=== PATIENT | female | born 1995 | race African-American/Black ===

== ENCOUNTER 2017-06-03 23:51 | Emergency (ER) | payer MEDICAID ==
[~2017-06-03 23:51] MED LIST: DICL50 PO
[2017-06-03 23:52] VITALS: BP 160/90; PULSE 68; RESP 16; TEMP 99.3; O2SAT 100
--- NOTE | 2017-06-04 00:05 | PD ---
HPI Chief Complaint: Chest Pain Time Seen by Provider: 00:02 Travel History International Travel<30 days: No Contact w/Intl Traveler<30days: No Traveled to known affect area: No History of Present Illness HPI 22-year-old female here for evaluation of chest pain. The patient reports that for the last 2 days she has been having intermittent left-sided chest pain which she describes as an ache, moderate, radiates down her left arm. There are no modifying factors. No dyspnea. No fevers, chills, cough, recent illness. No paresthesias or motor deficits. She reports having similar pains several years ago. No history of DVT or PE. No known history of cardiac disease. No history of cardiac disease in her mother or father. She has an explanon implantable control in her right upper extremity. She quit smoking in August of this year. No IVDU. PFSH Past Medical History Medical History: Denies Significant Hx Immunizations Current: Yes ?: Not LMP: 06/02/17 Past Surgical History Surgical History: No Previous Surgery Social History Alcohol Use: Yes (OCCASIONALLY ) Tobacco Use: Yes Substance Use: No Allergies-Medications (Allergen,Severity, Reaction): Coded Allergies: No Known Allergies (Unverified , 06/03/17) Reported Meds & Prescriptions Reported Meds & Active Scripts Active No Active Prescriptions or Reported Medications Review of Systems Except as stated in HPI: all other systems reviewed are Neg Physical Exam Narrative GENERAL: Well-developed, well-nourished, comfortable, no apparent distress. SKIN: Focused skin assessment warm/dry. HEAD: Atraumatic. Normocephalic. EYES: Pupils equal and round. No scleral icterus. No injection or drainage. ENT: Mucous membranes pink and moist. NECK: Trachea midline. No JVD. CARDIOVASCULAR: Regular rate and rhythm. No murmurs. Distal pulses brisk and equal bilaterally. RESPIRATORY: No accessory muscle use. Clear to auscultation. Breath sounds equal bilaterally. GASTROINTESTINAL: Abdomen soft, non-tender, nondistended. MUSCULOSKELETAL: No obvious deformities. No clubbing. No cyanosis. No edema. NEUROLOGICAL: Awake and alert. No obvious cranial nerve deficits. Motor grossly within normal limits. Normal speech. PSYCHIATRIC: Appropriate mood and affect; insight and judgment normal. Data Data Last Documented VS Vital Signs Date Time Temp Pulse Resp B/P (MAP) Pulse Ox O2 Delivery O2 Flow Rate FiO2 10/5/17 00:10 18 99 Room Air 06/03/17 23:52 99.3 68 Orders Orders Electrocardiogram (06/04/17 00:02) Basic Metabolic Panel (Bmp) (06/04/17 00:02) Ckmb (Isoenzyme) Profile (06/04/17 00:02) Complete Blood Count With Diff (06/04/17 00:02) D-Dimer (06/04/17 00:02) Prothrombin Time / Inr (Pt) (06/04/17 00:02) Act Partial Throm Time (Ptt) (06/04/17 00:02) Troponin I (06/04/17 00:02) Chest, Single Ap (06/04/17 00:02) Ecg Monitoring (06/04/17 00:02) Iv Access Insert/Monitor (06/04/17 00:02) Oximetry (06/04/17 00:02) Sodium Chloride 0.9% Flush (Ns Flush) (06/04/17 00:15) Ed Urine Pregnancytest Poc (06/04/17 00:02) CKMB (06/04/17 00:05) CKMB% (06/04/17 00:05) Labs Laboratory Tests Test 06/04/17 00:05 White Blood Count 12.3 TH/MM3 Red Blood Count 4.52 MIL/MM3 Hemoglobin 11.4 GM/DL Hematocrit 35.6 % Mean Corpuscular Volume 78.8 FL Mean Corpuscular Hemoglobin 25.2 PG Mean Corpuscular Hemoglobin Concent 31.9 % Red Cell Distribution Width 14.8 % Platelet Count 252 TH/MM3 Mean Platelet Volume 8.9 FL Neutrophils (%) (Auto) 50.7 % Lymphocytes (%) (Auto) 42.0 % Monocytes (%) (Auto) 5.6 % Eosinophils (%) (Auto) 1.0 % Basophils (%) (Auto) 0.7 % Neutrophils # (Auto) 6.2 TH/MM3 Lymphocytes # (Auto) 5.2 TH/MM3 Monocytes # (Auto) 0.7 TH/MM3 Eosinophils # (Auto) 0.1 TH/MM3 Basophils # (Auto) 0.1 TH/MM3 CBC Comment AUTO DIFF Prothrombin Time 10.2 SEC Prothromb Time International Ratio 0.9 RATIO Activated Partial Thromboplast Time 27.9 SEC D-Dimer Quantitative (PE/DVT) LESS THAN 0.19 MG/L FEU Blood Urea Nitrogen 11 MG/DL Creatinine 0.80 MG/DL Random Glucose 77 MG/DL Calcium Level 9.3 MG/DL Sodium Level 140 MEQ/L Potassium Level 3.6 MEQ/L Chloride Level 105 MEQ/L Carbon Dioxide Level 28.2 MEQ/L Anion Gap 7 MEQ/L Estimat Glomerular Filtration Rate 109 ML/MIN Total Creatine Kinase 225 U/L Troponin I LESS THAN 0.02 NG/ML MDM Medical Decision Making Medical Screen Exam Complete: Yes Emergency Medical Condition: Yes Interpretation(s) EKG: Sinus with sinus arrhythmia, rate 65, normal axis, normal intervals, no acute ischemic abnormality. Differential Diagnosis Atypical chest pain, ACS, pneumothorax, pericarditis, PE, pneumonia, musculoskeletal pain Narrative Course Vitals: HR 68, BP 160/90, pulse ux 100% on ra, temp 99.3 oral CBC: WBC 12.3, hemoglobin 11.4, hematocrit 35.6, platelets 252. BMP is unremarkable. Cardiac enzymes are negative. D-dimer is negative at 0.19. Urine is negative. Chest x-ray: Normal 1 view chest x-ray. Patient was made aware of all findings. She is resting comfortably. I do not believe her symptoms are cardiopulmonary in nature. She is stable for discharge home with outpatient follow-up with a primary care physician this week. She was informed on when to return to the emergency department. She verbalizes understanding and agreement with plan. Diagnosis Primary Impression: Atypical chest pain Referrals: [facility] Primary Care Physician 3 days Additional Instructions: Follow-up with a primary care physician this week. Return to the emergency department for worsening symptoms or any other concerns. Scripts No Active Prescriptions or Reported Meds Disposition: 01 DISCHARGE HOME Condition: Stable Bruno Kramer MD Jun 04, 2017 00:05
[2017-06-04 00:10] VITALS: RESP 18; O2SAT 99
[2017-06-04] MEDS ORDERED: SODIUM CHLORIDE 0.9% FLUSH 10 ML FLUSH IVF PRN (00:15)
--- NOTE | 2017-06-04 00:20 | RADRPT ---
EXAM DATE/TIME: 06/03/2017 23:59 [facility] COMPARISON: No previous studies available for comparison. INDICATIONS : Left side chest pain. MEDICAL HISTORY : None. SURGICAL HISTORY : None. ENCOUNTER: Initial ACUITY: 2 days PAIN SCORE: 6/10 LOCATION: Left chest FINDINGS: A single view of the chest demonstrates the lungs to be symmetrically aerated without evidence of mas s, infiltrate or effusion. The cardiomediastinal contours are unremarkable. Osseous structures are intact. CONCLUSION: Normal one view chest x-ray. Steve Guerrero MD on June 04, 2017 at 0:18 Board Certified Radiologist. This report was verified electronically.
[2017-06-04 00:25] LABS: AUTOMATED NEUTROPHIL # 6.2 TH/MM3 (1.8-7.7); BASOPHIL # 0.1 TH/MM3 (0-0.2); BASOPHIL % 0.7 % (0.0-2.0); EOSINOPHIL # 0.1 TH/MM3 (0-0.4); HEMATOCRIT 35.6 % (35.0-46.0); LYMPHOCYTE # 5.2 TH/MM3 (1.0-4.8); MEAN CELL VOLUME 78.8 FL (80.0-100.0); MEAN CORPUSCULAR HEMOGLOBIN 25.2 PG (27.0-34.0); MEAN CORPUSCULAR HGB CONC 31.9 % (32.0-36.0); MONO % 5.6 % (0.0-8.0); NEUT % 50.7 % (16.0-70.0); PLATELET COUNT 252 TH/MM3 (150-450); RED BLOOD COUNT 4.52 MIL/MM3 (4.00-5.30); RED CELL DISTRIBUTION WIDTH 14.8 % (11.6-17.2); WHITE BLOOD COUNT 12.3 TH/MM3 (4.0-11.0)
[2017-06-04 00:26] LABS: HEMO FLAGS AUTO DIFF
[2017-06-04 00:44] LABS: APTT (PATIENT) 27.9 SEC (24.3-30.1); INTERNATIONAL NORMALIZED RATIO 0.9 RATIO; PROTHROMBIN TIME - PATIENT 10.2 SEC (9.8-11.6)
[2017-06-04 00:56] LABS: ANION GAP 7 MEQ/L (5-15); BICARBONATE 28.2 MEQ/L (21.0-32.0); BLOOD UREA NITROGEN 11 MG/DL (7-18); CHLORIDE 105 MEQ/L (98-107); GLOMERULAR FILTRATION RATE 109 ML/MIN (>89); POTASSIUM 3.6 MEQ/L (3.5-5.1); SODIUM (NA) 140 MEQ/L (136-145)
[2017-06-04 01:00] LABS: CREATINE KINASE 225 U/L (26-192)
[2017-06-04 01:12] LABS: CKMB 1.6 NG/ML (0.5-3.6)
[2017-06-04 01:16] LABS: BANDS 1 % (0-6); EOSINOPHILS 2 % (0-4); NEUTROPHIL # MANUAL DIFF 6.5 TH/MM3 (1.8-7.7); PLATELET ESTIMATE SMEAR NORMAL (NORMAL); PLATELET MORPHOLOGY NORMAL (NORMAL); POLYS (SEG NEUTROPHILS) 52 % (16-70); SCAN/DIFF FINAL DIFF MANUAL; WBC DIFF SAMPLE 100
--- NOTE | 2017-06-04 14:39 | EKG ---
Date Performed: 06/04/2017 Time Performed: 00:15:26 PTAGE: 22 years EKG: Sinus rhythm WITH MARKED SINUS ARRHYTHMIA BORDERLINE ECG NO PREVIOUS TRACING DOCTOR: Ganesh Espinoza Interpretating Date/Time 06/04/2017 14:36:09
== END 2017-06-04 01:27 | disposition home or self-care (01) ==
LOC: NEPD 23:51
DX: R07.89 Other chest pain (principal); I49.9 Cardiac arrhythmia, unspecified; Z72.0 Tobacco use
CPT/HCPCS: 71010; 80048; 82550; 82552; 84484; 84703; 85007; 85027; 85379; 85610; 85730; 93005